=== PATIENT | female | born 1940 | race Caucasian/White ===

== ENCOUNTER 2021-09-26 12:09 | Emergency (ER) | payer MEDICARE, BC ==
--- NOTE | 2021-09-26 12:50 | EDM.PDOC ---
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 and accidentally bumped into the corner of the mailbox and she has a laceration on the top of her scalp, but bleeding is controlled there was no loss of conscious no nausea vomiting - Related Data Allergies Allergy/AdvReac Type Severity Reaction Status Date / Time No Known Allergies Allergy Verified 09/26/21 12:48 Home Meds: Home Meds Cholecalciferol (Vitamin D3) [Vitamin D3] 1,000 unit PO DAILY 03/31/21 [History] Rogers-3/DHA/Epa/Fish Oil [Rogers 3 500 Softgel] 1,000 each PO DAILY 03/31/21 [History] Past Medical History Musculoskeletal History: Reports: Other (See Below) Other Musculoskeletal History: bilateral hand pain - Past Surgical History Head Surgeries/Procedures: Reports: None Musculoskeletal Surgical History: Reports: Knee Replacement Other Musculoskeletal Surgeries/Procedures:: LT TKA Social & Family History - Tobacco Use Tobacco Use Status *Q: Never Tobacco User ED ROS GENERAL - Review of Systems Review Of Systems: See Below Constitutional: Reports: No Symptoms HEENT: Reports: No Symptoms Respiratory: Reports: No Symptoms Cardiovascular: Reports: No Symptoms Skin: Reports: Wound Neurological: Reports: No Symptoms ED EXAM, SKIN/RASH Exam: See Below Text/Narrative:: Examination of the scalp there is 1/2 cm by half centimeter V-shaped laceration partially through the dermis bleeding is controlled ED SKIN PROCEDURES - Laceration/Wound Repair Left Head Appearance: Subcutaneous, Irregular, Clean Distal NVT: Neuro & Vascular Intact, No Tendon Injury Skin Prep: Saline Saline Irrigation (cc's): 120 Exploration/Debridement/Repair: Wound Explored, In a Bloodless Field, Explored to Base Closed with: Dermabond Lac/Wound length In cm: 0.5 Sterile Dressing Applied: Nurse Tetanus Status Addressed: Yes Complications: No Course - Vital Signs Last Recorded V/S: Last Vital Signs Temp 98.5 F 09/26/21 12:50 Pulse 95 09/26/21 12:50 Resp 16 09/26/21 12:50 BP 127/69 09/26/21 12:50 Pulse Ox 96 09/26/21 12:50 Departure - Departure Time of Disposition: 13:00 Disposition: Home, Self-Care 01 Condition: Good Clinical Impression: Laceration of head Qualifiers: Encounter type: initial encounter Location of open wound of head: scalp Foreign body presence: without foreign body Qualified Code(s): S01.01XA - Laceration without foreign body of scalp, initial encounter - Discharge Information Instructions: Laceration Care, Adult Referrals: PCP,Unknown [Primary Care Provider] - Forms: ED Department Discharge Additional Instructions: Let the glue fall off naturally, try and keep it dry at least 48 hours, follow- up with primary care as needed call return to the emergency department worsening of symptoms Sepsis Event Note (ED) - Focused Exam Vital Signs: Vital Signs Temp Pulse Resp BP Pulse Ox 09/26/21 12:50 98.5 F 95 16 127/69 96 09/26/21 12:24 98.5 F 95 16 127/69 96 - Assessment/Plan Plan: Assessment Acuity = acute Site and laterality = head lacerationn Etiology = hitting the corner of the mailbox Manifestations = none Location of injury = Home Lab values = none Plan Follow wound care instruction sheet follow-up primary care as needed This note was dictated using [employer] voice recognition software please call with any questions on syntax or grammar.
== END 2021-09-26 13:42 | disposition home or self-care (01) ==
LOC: JP.ED 12:09
DX: S01.01XA Laceration without foreign body of scalp, initial encounter (principal); W26.8XXA Contact with other sharp object(s), not elsewhere classified, initial encounter
CPT/HCPCS: 12001; 99282-25

== ENCOUNTER 2022-04-26 06:28 | Emergency (ER) | payer MEDICARE, BC ==
[2022-04-26] MEDS ORDERED: Bacitracin Oint 1 GM U/D Packet TOP ONE (06:55)
[2022-04-26] MEDS ORDERED: Diphtheria,Pertussis(Acell),Tetanus Vaccine 0.5 ML Syringe IM ONE (07:54)
== END 2022-04-26 10:21 | disposition home or self-care (01) ==
LOC: JP.ED 06:28
DX: S01.111A Laceration without foreign body of right eyelid and periocular area, initial encounter (principal); S01.411A Laceration without foreign body of right cheek and temporomandibular area, initial encounter; Z79.899 Other long term (current) drug therapy; Z90.49 Acquired absence of other specified parts of digestive tract; Z90.710 Acquired absence of both cervix and uterus; W01.198A Fall on same level from slipping, tripping and stumbling with subsequent striking against other object, initial encounter
CPT/HCPCS: 12014; 70450; 70486; 90471; 90715; 99283-25

== ENCOUNTER 2025-10-29 06:25 | Emergency (ER) | payer MEDICARE, BC ==
[2025-10-29] MEDS: Ketorolac 30 MG/ML SDV IM ONE (06:54)
== END 2025-10-29 08:21 | disposition home or self-care (01) ==
LOC: JP.ED 06:25
DX: M17.11 Unilateral primary osteoarthritis, right knee (principal); Z90.49 Acquired absence of other specified parts of digestive tract; Z90.710 Acquired absence of both cervix and uterus; Z79.890 Hormone replacement therapy
CPT/HCPCS: 73562-26-RT; 73562-RT; 96372; 99283; J1885